=== PATIENT | female | born 1975 | race Caucasian/White ===

== ENCOUNTER → 2023-05-24 | Outpatient (CLI) | payer OTHER | END | disposition home or self-care (01) | LOC: MSR 09:37 | PROVIDERS: ATTEND Chiropractor | DX: M06.2 Rheumatoid bursitis (principal); M77.32 Calcaneal spur, left foot; M77.30 Calcaneal spur, unspecified foot; M35.01 Sjogren syndrome with keratoconjunctivitis; R07.9 Chest pain, unspecified | CPT/HCPCS: 71046; 86038; 86431; 36415-L1; 36415-TC ==